=== PATIENT | male | born 1970 | race African-American/Black ===

== ENCOUNTER 2016-05-09 04:28 | Emergency (ER) | payer OTHER ==
[~2016-05-09] VITALS: Ht 188 cm; Wt 113.4 kg
--- NOTE | ~2016-05-09 | EKG ---
[place] [address] [facility] [place] [address] ELECTROCARDIOGRAM REPORT Name: MO HAMMOND Room #: DEP KULDEEP Thomas#: [id number] Admission: 05/09/16 Attend Phys: Discharge: 05/09/16 Date of : 66 Report #: [id number] THIS REPORT FOR: //name// [facility] ED Test Date: 2016-05-09 Test Time: 04:37:03 Pat Name: MO HAMMOND Department: Room: Gender: 1St Press[employer]: kgreub : 1970 Requested By: Ana Lilia Simmons Order Number: [id number] MD: Aurelio Munguia Measurements Intervals [place] Rate: 87 P: 75 WV: 128 QRS: -7 QRSD: 85 T: 33 QT: 325 QTc: 391 Interpretive Statements Sinus rhythm No significant abnormality No previous ECG available for comparison Electronically Signed On 05-09-2016 14:30:32 [employer] by Aurelio Munguia [email or web address] <ELECTRONICALLY SIGNED> By: Aurelio Munguia MD, [facility] 05/09/16 1430 0437 [id number] Aurelio Munguia MD, FACC /EPI
[~2016-05-09 04:28] MED LIST: MUCINEX TA600 MG/TA2 PO; TOBREX3.5 GM OP; ULTRAM 50MG TAB50 MG PO
[2016-05-09 05:42] LABS: ABSOLUTE NEUTROPHILS 2.9 thou/uL (1.4-8.2); BASOPHILS 0.9 % (0.0-2.0); EOSINOPHILS 3.9 % (0.0-3.0); HEMOGLOBIN 15.3 gm/dL (14.0-18.0); LYMPHOCYTES 40.7 % (24.0-44.0); MCH 32.4 pg (26.0-34.0); MCV 95.4 fL (80.0-100.0); MONOCYTES 8.1 % (1.0-8.0); PLATELET COUNT 338 thou/uL (150-400); POLYS 46.4 % (36.0-66.0); RBC 4.72 mil/uL (4.50-6.00); RDW 13.8 % (10.5-14.5); WBC 6.3 thou/uL (4.0-11.0)
[2016-05-09 05:43] LABS: MANUAL DIFF NO
[2016-05-09 05:47] LABS: ANION GAP 8 mmol/L (7-16); BUN 10 mg/dL (7-18); CALCIUM 9.1 mg/dL (8.5-10.1); CHLORIDE 105 mmol/L (98-107); CO2 28 mmol/L (21-32); CREATININE 1.2 mg/dL (0.6-1.3); SODIUM 141 mmol/L (136-145)
[2016-05-09 05:58] LABS: GLUCOSE 96 mg/dL (70-99)
[2016-05-09 06:04] LABS: TROPONIN-I < 0.04 ng/mL (<0.04-0.07)
[2016-05-09 07:38] VITALS: BP 125/85
== END 2016-05-09 07:38 | disposition home or self-care (01) ==
LOC: ER 04:28
PROVIDERS: Emergency Medicine
DX: R07.89 Other chest pain (principal)

== ENCOUNTER 2019-04-23 11:16 | Emergency (ER) | payer OTHER ==
[~2019-04-23] VITALS: Ht 188 cm; Wt 113.4 kg
[2019-04-23 12:02] LABS: ABSOLUTE NEUTROPHILS 3.3 thou/uL (1.4-8.2); BASOPHILS 1.3 % (0.0-2.0); EOSINOPHILS 1.3 % (0.0-3.0); HEMATOCRIT 44.3 % (42.0-52.0); HEMOGLOBIN 14.6 gm/dL (14.0-18.0); LYMPHOCYTES 33.8 % (24.0-44.0); MCH 31.6 pg (26.0-34.0); MCHC 32.8 g/dL (28.0-37.0); MCV 96.3 fL (80.0-100.0); MONOCYTES 4.6 % (1.0-8.0); PLATELET COUNT 338 thou/uL (150-400); RDW 14.2 % (10.5-14.5); WBC 5.6 thou/uL (4.0-11.0)
[2019-04-23 12:09] LABS: ANION GAP 9 mmol/L (7-16); BUN 10 mg/dL (7-18); CALCIUM 9.9 mg/dL (8.5-10.1); CHLORIDE 102 mmol/L (98-107); CO2 27 mmol/L (21-32); CREATININE 1.2 mg/dL (0.7-1.3); GLUCOSE 118 mg/dL (74-106); POTASSIUM 3.7 mmol/L (3.5-5.1); SODIUM 138 mmol/L (136-145)
[2019-04-23 12:20] LABS: ALBUMIN 3.9 g/dL (3.4-5.0); SGOT 14 U/L (15-37); SGPT 24 U/L (30-65); TOTAL BILIRUBIN 0.4 mg/dL (<0.1-1.0); TOTAL PROTEIN 8.9 g/dL (6.4-8.2); TROPONIN-I <0.06 ng/mL (<0.06)
[2019-04-23] MEDS ORDERED: ATIVAN0.5 M1 PO (14:34)
[2019-04-23 14:54] VITALS: BP 136/67
--- NOTE | 2019-04-26 12:56 | EKG ---
[place] [address] [facility] [address] [place] [address] ELECTROCARDIOGRAM REPORT Name: MO HAMMOND Room #: DEP KULDEEP Thomas#: [id number] Admission: 04/23/19 Attend Phys: Discharge: 04/23/19 Date of : [birth year] Report #: [id number] THIS REPORT FOR: //name// [facility] ED Test Date: 2019-04-23 Test Time: 11:22:36 Pat Name: MO HAMMOND Department: Room: Gender: M Orientor: : 1970 Requested By: Davonte Mcdaniels Order Number: [id number] MD: Paxton Coburn Measurements Intervals [place] Rate: 92 P: 41 OR: 132 QRS: 26 QRSD: 85 T: 39 QT: 330 QTc: 409 Interpretive Statements Sinus rhythm Probable left atrial enlargement Baseline wander in lead(s) V1 Compared to ECG 05/09/2016 04:37:03 No significant changes Electronically Signed On 04-26-2019 12:55:49 [employer]ING [employer] WORK[employer] by Paxton Coburn [email or web address] <ELECTRONICALLY SIGNED> By: Paxton Coburn MD 04/26/19 1255 21 21 Paxton Coburn MD /JINNY
== END 2019-04-23 14:55 | disposition home or self-care (01) ==
LOC: ER 11:16
PROVIDERS: Emergency Medicine
DX: F41.0 Panic disorder [episodic paroxysmal anxiety] (principal)